=== PATIENT | female | born 1970 | race Caucasian/White ===

== ENCOUNTER 2020-09-04 06:41 | Outpatient (REF) | payer OTHER, SELFPAY | END 2020-09-04 06:42 | disposition home or self-care (01) | LOC: HO.LAB 06:41 | PROVIDERS: Visit Provider Internal Medicine | DX: Z20.828 Contact with and (suspected) exposure to other viral communicable diseases (principal) | CPT/HCPCS: C9803; U0003 ==

== ENCOUNTER 2020-10-13 09:00 | Outpatient (REF) | payer OTHER, SELFPAY ==
[2020-10-14 11:42] LABS: C. trachomatis RNA TMA NOT DETECTED (NOT DETECTED); N. gonorrhoeae RNA TMA NOT DETECTED (NOT DETECTED)
== END 2020-10-13 09:01 | disposition home or self-care (01) ==
LOC: HO.LAB 09:00
PROVIDERS: PCP Internal Medicine; Visit Provider Advanced Practice Midwife
DX: Z01.419 Encounter for gynecological examination (general) (routine) without abnormal findings (principal); R23.2 Flushing; Z20.2 Contact with and (suspected) exposure to infections with a predominantly sexual mode of transmission
CPT/HCPCS: 36415; 87491; 87591

== ENCOUNTER 2020-12-25 10:06 | Outpatient (REF) | payer OTHER, SELFPAY ==
--- NOTE | ~2020-12-25 | MM_ITS ---
EXAMINATION: MM SCREENING DIGITAL BREAST TOMOSYNTHESIS, BILATERAL CLINICAL INFORMATION: Screening. Asymptomatic. The lifetime risk of breast cancer based on the Tyrer-Cuzick Model is 11%. COMPARISON: Mammography: 07/19/2015, 01/05/2015, 01/04/2014 TECHNIQUE: Digital breast tomosynthesis is performed in both the craniocaudal and mediolateral oblique views along with computer-aided detection (CAD). Synthesized 2D images are generated from the tomosynthesis. FINDINGS: There are scattered areas of fibroglandular density (ACR BI-RADS breast composition Category b). There are no significant masses, abnormal calcifications, or other abnormalities. Small nodular asymmetry posterior medial central right breast is stable since 2013. Parenchymal asymmetry mid upper outer left breast noted previously is left conspicuous. No developing density. The axilla and skin contours are unremarkable. MM/MM tomosynthesis screening BI IMPRESSION: No mammographic evidence of malignancy. ASSESSMENT: BI-RADS 2: Benign RECOMMENDATION: Routine annual mammography screening. This patient's information was entered into a reminder system with a target due date for their next mammogram.
== END 2020-12-25 10:07 | disposition home or self-care (01) ==
LOC: HO.MAMMO 10:06
PROVIDERS: Visit Provider Advanced Practice Midwife
DX: Z12.31 Encounter for screening mammogram for malignant neoplasm of breast (principal)
CPT/HCPCS: 77063; 77067

== ENCOUNTER 2021-02-12 08:51 | Outpatient (REF) | payer OTHER, SELFPAY ==
[2021-02-12 09:23] LABS: Basophils Absolute Auto 0.1 X10*3/uL (0.0-0.2); Basophils Percent Auto 1.3 % (0-2); Eosinophils Absolute Auto 0.1 X10*3/uL (0.0-0.4); Eosinophils Percent Auto 2.4 % (0-4); Hematocrit 43.7 % (37-47); Hemoglobin 14.7 g/dl (12.0-16.0); Imm Gran Abs Auto 0.03 X10*3/uL (0.00-0.03); Imm Gran Pct Auto 0.6 % (0.0-0.4); Lymphocytes Absolute Auto 2.3 X10*3/uL (1.2-4.9); Lymphocytes Percent Auto 42.8 % (20-40); MANUAL DIFF FLAG NO; Mean Corpuscular HGB Conc 33.6 g/dl (31.0-35.0); Mean Corpuscular Hemoglobin 28.8 pg (27.0-33.0); Mean Corpuscular Volume 85.7 fL (80-98); Mean Platelet Volume 10.8 fL (9.4-12.3); Monocytes Absolute Auto 0.6 X10*3/uL (0.1-1.2); Monocytes Percent Auto 10.3 % (2-11); Neutrophils Absolute Auto 2.3 X10*3/uL (2.0-8.3); Neutrophils Percent Auto 42.6 % (45-73); Platelet Count 216 X10*3/uL (160-400); Red Cell Distribution Width 12.9 % (11.0-16.0); White Blood Count 5.4 X10*3/uL (4.8-10.8)
[2021-02-12 09:39] LABS: Alanine Aminotransferase 23 U/L (0-31); Albumin Level 4.3 g/dL (3.5-5.0); Alkaline Phosphatase 110 U/L (39-117); Anion Gap 10 (12-20); Aspartate Amino Transferase 25 U/L (5-31); Bilirubin Total 0.7 mg/dL (0.0-1.0); Blood Urea Nitrogen 13 mg/dL (9-16); Calcium 9.6 mg/dL (8.4-10.2); Carbon Dioxide 31 mmol/L (22-29); Chloride 107 mmol/L (96-108); Cholesterol 166 mg/dL; Estimated Glomerular Filt Rate > 60; Glucose Fasting 95 mg/dL (60-99); HDL Cholesterol 46 mg/dL; LDL Cholesterol Calculated 90 mg/dl; Potassium 4.4 mmol/L (3.3-5.1); Sodium 144 mmol/L (135-145); Total Protein 6.9 g/dL (6.5-8.0); Triglycerides 151 mg/dL
== END 2021-02-12 08:52 | disposition home or self-care (01) ==
LOC: HO.LAB 08:51
PROVIDERS: PCP Internal Medicine; Visit Provider Internal Medicine
DX: Z00.00 Encounter for general adult medical examination without abnormal findings (principal)
CPT/HCPCS: 36415; 80053; 80061; 85025

== ENCOUNTER 2021-04-03 08:24 | Outpatient (REF) | payer OTHER, SELFPAY ==
--- NOTE | ~2021-04-03 | US_ITS ---
EXAMINATION: US RETROPERITONEAL COMPLETE (RENAL) CLINICAL INFORMATION: Renal stones. COMPARISON: Ultrasound renal with bladder 01/12/2015. TECHNIQUE: Real-time imaging of the kidneys and bladder. FINDINGS: RIGHT KIDNEY: 12.8 x 4.4 x 6.3 cm (SAG x AP x TRV). The kidney is normal in size, contour, and echogenicity. Renal cortical thickness is normal. No focal parenchymal lesions. There are echogenic stones in the upper midpole. They measure 0.7 x 0.5 x 0.7 and 0.3 x 0.3 x 0.4 cm in upper pole and 0.3 x 0.2 x 0.3 in midpole. There is mild hydronephrosis. LEFT KIDNEY: 11.7 x 5.3 x 4.9 cm (SAG x AP x TRV). The kidney is normal in size, contour, and echogenicity. Renal cortical thickness is normal. No focal parenchymal lesions. There is a small cluster echogenic stone in the upper pole measuring 2.1 x 1.5 x 1.6 cm. Small cluster of echogenic calculi is also seen in the lower pole measuring 1.1 x 0.6 x 0.7 cm. There is mild hydronephrosis. BLADDER: Well distended and normal. Bilateral ureteral jets are demonstrated. Prevoid bladder volume is 388 mL. Postvoid bladder volume is 61 mL. US/US retroperitoneal comp IMPRESSION: Bilateral echogenic clusters of renal calculi with mild hydronephrosis. Small postvoid residual bladder volume. Normal bilateral ureteral jets seen.
== END 2021-04-03 08:25 | disposition home or self-care (01) ==
LOC: HO.HMGCX 08:24
PROVIDERS: PCP Internal Medicine; Visit Provider Internal Medicine
DX: N20.0 Calculus of kidney (principal)
CPT/HCPCS: 76770

== ENCOUNTER → 2021-04-12 08:06 | Outpatient (REF) | payer OTHER, SELFPAY ==
--- NOTE | 2021-04-11 15:11 | ECG_ITS ---
Test Reason : CHEST PAIN Blood Pressure : / mmHG Vent. Rate : 090 BPM Atrial Rate : 090 BPM P-R Int : 210 ms QRS Dur : 088 ms QT Int : 372 ms P-R-T Axes : 057 -31 033 degrees QTc Int : 455 ms Sinus rhythm with 1st degree A-V block Possible Left atrial enlargement Left axis deviation Septal infarct , age undetermined Abnormal ECG No previous ECGs available Referred By: John Ibanez Electronically Signed By:Adebayo Mehta
[2021-04-11 15:40] LABS: MANUAL DIFF FLAG NO
[2021-04-11 15:42] LABS: Basophils Absolute Auto 0.1 X10*3/uL (0.0-0.2); Basophils Percent Auto 0.9 % (0-2); Eosinophils Absolute Auto 0.1 X10*3/uL (0.0-0.4); Eosinophils Percent Auto 1.6 % (0-4); Hematocrit 41.2 % (37-47); Hemoglobin 14.4 g/dl (12.0-16.0); Imm Gran Abs Auto 0.03 X10*3/uL (0.00-0.03); Imm Gran Pct Auto 0.4 % (0.0-0.4); Lymphocytes Absolute Auto 2.3 X10*3/uL (1.2-4.9); Lymphocytes Percent Auto 30.8 % (20-40); Mean Corpuscular Hemoglobin 29.8 pg (27.0-33.0); Mean Corpuscular Volume 85.3 fL (80-98); Mean Platelet Volume 10.2 fL (9.4-12.3); Monocytes Absolute Auto 0.8 X10*3/uL (0.1-1.2); Monocytes Percent Auto 11.4 % (2-11); Neutrophils Absolute Auto 4.1 X10*3/uL (2.0-8.3); Neutrophils Percent Auto 54.9 % (45-73); Platelet Count 240 X10*3/uL (160-400); Red Blood Count 4.83 X10*6/uL (4.20-5.50); White Blood Count 7.4 X10*3/uL (4.8-10.8)
[2021-04-11 16:05] LABS: Anion Gap 13 (12-20); Blood Urea Nitrogen 11 mg/dL (9-16); Calcium 9.8 mg/dL (8.4-10.2); Carbon Dioxide 29 mmol/L (22-29); Chloride 104 mmol/L (96-108); Estimated Glomerular Filt Rate > 60; Glucose Random 114 mg/dL (60-115); Sodium 142 mmol/L (135-145)
[2021-04-11 16:20] LABS: D Dimer 380 NG/ML
[2021-04-11 16:22] LABS: Troponin-I High Sensitivity < 3.5 ng/L (<3.5-17.0)
--- NOTE | 2021-04-12 08:00 | CA_ITS ---
Acquisition Time: 2021-04-12 08:07:53 Total Exercise Time: 00:06:02 Test Indications: Chest Pain Medications: Protocol: TONE Max HR: 164 BPM 97% of Pred: 169 BPM Max BP: 212/104 mmHG Max Work Load: 7.0 METS PT EXERCISED ON STD TONE PROTOCOL FOR 6 MIN THRU STAGE 2. MAX HR 164-97% MAX. 2/10 CHEST TIGHTNESS. INITIAL T-WAVE CHANGESON RESTING EKG RESOLVED WITH EXERCISE. PT TOLERATED EXERCISE WELL. WILL REFER TO CARDIOLOGY FOR FURTHER EVAL.. Referred By: John Roper Overread By: JEFF ROPER MD
== END ==
LOC: HO.CARD 08:06
PROVIDERS: PCP Internal Medicine; Visit Provider Internal Medicine
DX: R07.1 Chest pain on breathing (principal); R06.09 Other forms of dyspnea; Z86.16 Personal history of COVID-19
CPT/HCPCS: 36415; 80048; 84484; 85025; 85379; 86140; 93005; 93017

== ENCOUNTER → 2021-05-07 09:54 | Outpatient (BNVA) | payer OTHER, SELFPAY | PROVIDERS: PCP Internal Medicine; Visit Provider Internal Medicine ==

== ENCOUNTER → 2021-06-07 08:30 | Outpatient (REF) | payer OTHER, SELFPAY ==
--- NOTE | ~2021-06-07 | NM_ITS ---
EXERCISE MYOCARDIAL PERFUSION STUDY INDICATION: Chest pain, assess for coronary disease and ischemia TECHNIQUE: The patient was brought in for an exercise perfusion study on 06/07/2021. Patient performed exercise as per Karri protocol and was injected 30 mCi of sestamibi once target heart rate was achieved. Images were obtained using the SPECT gamma camera interlaced with the gating device. Images were obtained in supine position. Resting perfusion study was performed on 06/08/2021. Patient was administered 30 mCi of sestamibi intravenously at rest. Images were then obtained in supine position. Total DLP 118mGy-cm. Images were processed with the software and compared side to side in short axis, horizontal long axis and vertical long axis views. FINDINGS: Raw images were reviewed. The stress perfusion study showed diminished tracer uptake in the apical anterior wall. There does appear to be slight improvement with CT attenuation correction.. The gated study shows normal LV systolic function with calculated LVEF of 71%. LV cavity is normal in size. The gated study shows normal wall thickening and contraction of segments. Resting study shows mildly reduced tracer uptake in the distal part of anterior wall, with improvement from CT attenuation correction. Gating at rest reveals normal wall motion with ejection fraction at 57%. The findings are consistent with mild reversible apical anterior defect likely from soft tissue attenuation. NM/NM cardiolite stress test IMPRESSION: 1. Myocardial perfusion imaging study shows mild apical reversible defect likely artifactual. Less likely from ischemia. 2. Gated LVEF is 66% during stress and 57% during rest.. 3. Transient ischemic dilatation not present. EKG component of the test reported separately.
--- NOTE | 2021-06-07 08:32 | CA_ITS ---
Transthoracic Echocardiogram Patient (Last, First, Middle): Naina Robles M Gender: Female Date of : 1970 Age: 51 Procedure Date: 06/07/2021 Procedure Type: Transthoracic Echocardiogram Location: OP Height: 165.1 cm Weight: 91.63 kg BSA: 1.99 m2 Heart Rate: bpm BP: 134 / 90 mmHg Blind Eyeletter: LOLIS Referring MD: Toni Bragg MD Symptoms: R07.2 - Precordial pain Study Quality: Good ECG Rhythm: Sinus Conclusions: - The left ventricular systolic function is normal. The calculated ejection fraction is 58% by biplane method. - There is mildly increased left ventricular wall thickness. - No obvious valvular pathology seen on this study. Findings Left Ventricle Normal left ventricular cavity size. There is mildly increased left ventricular wall thickness. The left ventricular systolic function is normal. The calculated ejection fraction is 58% by biplane method. There is no evidence of regional wall motion abnormalities. Diastolic function is normal for age. Right Ventricle Normal right ventricular cavity size and systolic function. Atria Both atria are normal in size. Aortic Valve There is a normal trileaflet aortic valve. There is no aortic valve stenosis. There is no aortic valve regurgitation. Mitral Valve The mitral valve appears normal. There is trace mitral valve regurgitation. There is no mitral valve stenosis. Pulmonic Valve The pulmonic valve was not well visualized. Tricuspid Valve Normal tricuspid valve structure. There is no tricuspid valve regurgitation. Tricuspid regurgitation envelope is inadequate for calculation of right ventricular systolic pressure. Great Vessels The aortic annulus, sinuses of valsalva, and asc aorta are normal in size. Venous The inferior vena cava is normal in size and collapses greater than 50% with inspiration. Pericardium/Pleural There is no evidence of pericardial effusion. Prior Study Comparison No prior study available for comparison. Recommendations, Care & Conclusions No obvious valvular pathology seen on this study. Measurements 2D Linear Measurements IVSd: 1.31 0.6-0.9/0.6-1.0 cm LVIDd: 3.60 3.9-5.3/4.2-5.9 cm LVIDd Index: 1.81 2.4-3.2/2.2-3.1 cm/m2 LVIDs: 2.71 2.0-3.6 cm LVPWd: 1.14 0.7-1.1 cm Ao Root: 3.90 2.1-3.5 cm LA Diam: 3.70 2.7-3.8/3.0-4.0 cm LAIDs Index: 1.86 1.5-2.3 cm/m2 LV Mass: 181.78 67-162/88-224 g LV Mass Index: 91.35 43-95/49-115 g/m2 LVOT Diam: 2.00 3.0+(-)1.3 cm 2D Systolic Function EF 4C: 54.00 >55% EF 2C: 62.30 >55% EF BiP: 57.70 >55% Mitral Valve MV Pk E: 0.47 MV PK A: 0.66 MV Decel Time: 275.00 E/A: 0.70 E'Lateral: 8.05 E'Medial: 5.66 E/E' Med: 8.30 E/E' Lat: 5.80 PHT: 80.00 MVA PHT: 2.75 Decel [place]: 1.70 Aortic Valve AoV Pk Reid: 0.99 AoV Mn Reid: 0.80 AoV VTI: 0.22 AoV Pk Grad: 4.00 Aov Mn Grad: 3.00 DORITA Cont.VTI: 2.87 LVOT LVOT Pk Reid: 1.10 LVOT Mn Reid: 0.77 LVOT VTI: 0.20 LVOT Pk Grad: 5.00 LVOT Mn Grad: 3.00 LVOT Diam: 2.00 LVOT Area: 3.14 Diastolic Function MV Pk E: 0.47 MV Pk A: 0.66 E/A: 0.70 E'Medial: 5.66 E/E' Med: 8.30 E' Laterial: 8.05 E/E' Lat: 5.80 Right Ventricle TAPSE (mm): 2.16 TVS' Reid: 10.90 Tricuspid Valve RA Press: 3.00 Great Vessels Aorta Ao Root-2D: 3.90 2.0-3.7 cm Ao Asc: 3.20 2.1-3.4 cm Ao Arch: 2.40 Updated in Other Vendor System with Status of Final Toni Bragg MD electronically signed on 06/08/2021 11:06:26 AM with status of Final
--- NOTE | 2021-06-07 08:32 | CA_ITS ---
Acquisition Time: 2021-06-07 09:17:30 Total Exercise Time: 00:06:00 Test Indications: Abnormal Treadmill Test Medications: ASA Protocol: TONE Max HR: 169 BPM 100% of Pred: 169 BPM Max BP: 186/092 mmHG Max Work Load: 7.0 METS Exercise stress test with exercise 6 min of Tone protocol, with moderate shortness of breath and 5/10 mid chest throbbing discomfort, with rare isolated PVC, with normotensive response to exercise, with T wave inversion inferiorly and V4-V6 at baseline and in later recovery, without EKG changes meeting criteria for ischemia during exercise. ( note signal average EKG tracings appear ischemia however raw date EKGs show upsloping ST segments). Nuclear images pending. Test reveiwed with Dr Bragg. Referred By: Toni Bragg Overread By: CHRIS KING
== END ==
LOC: HO.CARD 08:30
PROVIDERS: PCP Internal Medicine; Visit Provider Internal Medicine
DX: R07.2 Precordial pain (principal); R06.02 Shortness of breath
CPT/HCPCS: 78452; 93017; 93306; A9500

== ENCOUNTER → 2021-06-14 08:18 | Outpatient (BNVA) | payer OTHER, SELFPAY | PROVIDERS: PCP Internal Medicine; Referring Provider Internal Medicine; Visit Provider Internal Medicine ==

== ENCOUNTER 2021-08-27 11:43 | Outpatient (REF) | payer OTHER, SELFPAY ==
[2021-08-27 14:01] LABS: Influenza A PCR NEGATIVE (Negative); Influenza B PCR NEGATIVE (Negative); Resp Syncy Virus RNA Qual PCR NEGATIVE (Negative); SARS COV2 PCR INHOUSE NEGATIVE (Negative)
== END 2021-08-27 11:44 | disposition home or self-care (01) ==
LOC: HO.LNP 11:43
PROVIDERS: PCP Internal Medicine; Visit Provider Internal Medicine
DX: J02.9 Acute pharyngitis, unspecified (principal); Z20.822 Contact with and (suspected) exposure to COVID-19
CPT/HCPCS: 0241U

== ENCOUNTER 2021-10-09 15:17 | Outpatient (REF) | payer OTHER, SELFPAY ==
[2021-10-09 15:37] LABS: COVID-19 Test Negative (Negative); IDNOW Serial# 9DD0AD1C
== END 2021-10-09 15:18 | disposition home or self-care (01) ==
LOC: HO.LNP 15:17
PROVIDERS: Visit Provider Internal Medicine
DX: Z20.822 Contact with and (suspected) exposure to COVID-19 (principal); R51.9 Headache, unspecified; R50.9 Fever, unspecified; J02.9 Acute pharyngitis, unspecified
CPT/HCPCS: 87635

== ENCOUNTER 2021-10-17 08:46 | Outpatient (REF) | payer OTHER, SELFPAY ==
[2021-10-17 11:09] LABS: Hematocrit 43.3 % (37.0-47.0); Hemoglobin 14.8 g/dl (12.0-16.0); Mean Corpuscular HGB Conc 34.2 g/dl (31.0-35.0); Mean Corpuscular Volume 84.9 fL (80.0-98.0); Platelet Count 226 X10*3/uL (160-400); Red Cell Distribution Width 12.8 % (11.0-16.0); White Blood Count 6.2 X10*3/uL (4.8-10.8)
[2021-10-17 12:29] LABS: Creatinine Urine 109.08 mg/dL; Microalbum/Creatinine Ratio Ur 118.2 ug/mg cr
[2021-10-17 13:42] LABS: Anion Gap 12 (12-20); Carbon Dioxide 31 mmol/L (22-29); Chloride 105 mmol/L (96-108); Estimated Glomerular Filt Rate > 60; Glucose Random 98 mg/dL (60-115); Potassium 4.7 mmol/L (3.3-5.1); Sodium 143 mmol/L (135-145)
[2021-10-17 15:05] LABS: Blood Urea Nitrogen 15 mg/dL (9-16); Calcium 9.8 mg/dL (8.4-10.2)
[2021-10-17 15:28] LABS: Estimated Average Glucose 108 mg/dL; Hemoglobin A1c % 5.4 %
[2021-10-17 16:27] LABS: CT PCR NOT DETECTED (Not Detect.); NG PCR NOT DETECTED (Not Detect.)
== END 2021-10-17 08:47 | disposition home or self-care (01) ==
LOC: HO.LAB 08:46
PROVIDERS: Absent Provider Internal Medicine; PCP Internal Medicine; Visit Provider Advanced Practice Midwife
DX: Z01.419 Encounter for gynecological examination (general) (routine) without abnormal findings (principal); Z20.2 Contact with and (suspected) exposure to infections with a predominantly sexual mode of transmission
CPT/HCPCS: 36415; 80048; 82043; 83036; 85027; 87491; 87591

== ENCOUNTER 2021-12-14 10:27 | Outpatient (REF) | payer OTHER, SELFPAY ==
[2021-12-14 10:59] LABS: COVID-19 Test Negative (Negative)
== END 2021-12-14 10:28 | disposition home or self-care (01) ==
LOC: HO.LNP 10:27
PROVIDERS: Visit Provider Internal Medicine
DX: Z20.822 Contact with and (suspected) exposure to COVID-19 (principal)
CPT/HCPCS: 87635; C9803

== ENCOUNTER 2022-01-05 07:50 | Outpatient (REF) | payer OTHER, SELFPAY ==
--- NOTE | ~2022-01-05 | MM_ITS ---
EXAMINATION: MM SCREENING DIGITAL BREAST TOMOSYNTHESIS, BILATERAL CLINICAL INFORMATION: Screening. Asymptomatic. The lifetime risk of breast cancer based on the Tyrer-Cuzick Model is 10%. COMPARISON: Mammography: 12/25/2020, 07/19/2015, 01/05/2015, 01/04/2014 TECHNIQUE: Digital breast tomosynthesis is performed in both the craniocaudal and mediolateral oblique views along with computer-aided detection (CAD). Synthesized 2D images are generated from the tomosynthesis. FINDINGS: There are scattered areas of fibroglandular density (ACR BI-RADS breast composition Category b). There are no significant masses, abnormal calcifications, or other abnormalities. There is no developing density or architectural abnormality. Small circumscribed nodule posterior central right breast is stable from prior studies. Parenchymal asymmetry left breast upper outer quadrant noted on remote mammograms has regressed over time. The axilla and skin contours are unremarkable. MM/MM tomosynthesis screening BI IMPRESSION: No mammographic evidence of malignancy. ASSESSMENT: BI-RADS 2: Benign RECOMMENDATION: Routine annual mammography screening. This patient's information was entered into a reminder system with a target due date for their next mammogram.
== END 2022-01-05 07:51 | disposition home or self-care (01) ==
LOC: HO.MAMMO 07:50
PROVIDERS: Visit Provider Advanced Practice Midwife
DX: Z12.31 Encounter for screening mammogram for malignant neoplasm of breast (principal)
CPT/HCPCS: 77063; 77067

== ENCOUNTER 2022-10-22 07:59 | Outpatient (REF) | payer OTHER, SELFPAY ==
[2022-10-22 16:59] LABS: CT PCR NOT DETECTED (Not Detect.); NG PCR NOT DETECTED (Not Detect.)
[2022-10-23 09:07] LABS: BV Int Neg Control Negative (Negative); BV Int Pos Control Positive (Positive)
== END 2022-10-22 08:00 | disposition home or self-care (01) ==
LOC: HO.LAB 07:59
PROVIDERS: PCP Internal Medicine; Visit Provider Advanced Practice Midwife
DX: Z01.419 Encounter for gynecological examination (general) (routine) without abnormal findings (principal); Z11.3 Encounter for screening for infections with a predominantly sexual mode of transmission; N93.9 Abnormal uterine and vaginal bleeding, unspecified; F43.21 Adjustment disorder with depressed mood; R23.2 Flushing; N95.0 Postmenopausal bleeding
CPT/HCPCS: 0353U; 87480; 87510; 87660

== ENCOUNTER 2022-10-22 08:37 | Outpatient (REF) | payer OTHER, SELFPAY | END 2022-10-22 08:38 | disposition home or self-care (01) | LOC: HO.LNP 08:37 | PROVIDERS: Visit Provider Advanced Practice Midwife | DX: Z13.89 Encounter for screening for other disorder (principal) ==

== ENCOUNTER 2022-11-06 15:49 | Outpatient (REF) | payer OTHER, SELFPAY ==
--- NOTE | ~2022-11-06 | US_ITS ---
EXAMINATION: US PELVIS CLINICAL INFORMATION: Postmenopausal bleeding. COMPARISON: Pelvic ultrasound dated 12/21/2013. TECHNIQUE: Ultrasound of the pelvis is performed using both transabdominal and transvaginal transducers along with Doppler. Transvaginal imaging is performed due to inadequate visualization transabdominally. FINDINGS: Uterus: The uterus is anteverted and anteflexed. The uterus measures 7.4 x 2.8 x 3.0 cm. Nabothian cysts are seen within the cervix. A 3 mm cervical calcification is seen, possibly related to a minimal fibroid or The double wall endometrial thickness is 0.2 mm. The uterus is smooth in contour and has normal myometrial echogenicity. No visible fibroid. Adnexa: Both ovaries are visualized. There is normal color flow to the adnexa. There is no ovarian torsion. There is no pelvic ascites or fluid collection. Right ovary measures 1.9 x 1.5 x 1.3 cm, volume 1.9 mL. Left ovary measures 2.1 x 1.0 x 1.2 cm, volume 1.3 mL. US/US pelvic and transvaginal IMPRESSION: 1. Nabothian cysts are seen within the cervix. 2. A small endocervical calcifications is seen, likely sequela of prior infection or inflammation or related to a calcified fibroid. Recommend management on a clinical basis, including correlation with the patient's most recent Pap smear.
== END 2022-11-06 15:50 | disposition home or self-care (01) ==
LOC: HO.US 15:49
PROVIDERS: PCP Internal Medicine; Visit Provider Advanced Practice Midwife
DX: N95.0 Postmenopausal bleeding (principal)
CPT/HCPCS: 76830; 76856

== ENCOUNTER 2022-11-13 08:46 | Outpatient (REF) | payer OTHER, SELFPAY ==
[2022-11-13 09:11] LABS: MANUAL DIFF FLAG NO
[2022-11-13 09:23] LABS: Basophils Absolute Auto 0.1 X10*3/uL (0.0-0.2); Basophils Percent Auto 1.4 % (0-2); Eosinophils Absolute Auto 0.1 X10*3/uL (0.0-0.4); Eosinophils Percent Auto 2.1 % (0-4); Hematocrit 44.8 % (37.0-47.0); Hemoglobin 15.4 g/dl (12.0-16.0); Imm Gran Abs Auto 0.03 X10*3/uL (0.00-0.03); Imm Gran Pct Auto 0.5 % (0.0-0.4); Lymphocytes Absolute Auto 2.3 X10*3/uL (1.2-4.9); Lymphocytes Percent Auto 39.5 % (20-40); Mean Corpuscular HGB Conc 34.4 g/dl (31.0-35.0); Mean Corpuscular Hemoglobin 29.4 pg (27.0-33.0); Mean Corpuscular Volume 85.5 fL (80.0-98.0); Mean Platelet Volume 10.7 fL (9.4-12.3); Monocytes Absolute Auto 0.5 X10*3/uL (0.1-1.2); Monocytes Percent Auto 9.1 % (2-11); Neutrophils Absolute Auto 2.8 x10*3/uL (2.0-8.3); Neutrophils Percent Auto 47.4 % (45-73); Platelet Count 223 X10*3/uL (160-400); Red Blood Count 5.24 X10*6/uL (4.20-5.50); Red Cell Distribution Width 12.9 % (11.0-16.0); White Blood Count 5.9 X10*3/uL (4.8-10.8)
[2022-11-13 10:13] LABS: Alanine Aminotransferase 13 U/L (0-31); Albumin Level 4.4 g/dL (3.5-5.0); Alkaline Phosphatase 85 U/L (39-117); Anion Gap 14 (12-20); Aspartate Amino Transferase 20 U/L (5-31); Bilirubin Total 0.7 mg/dL (0.0-1.0); Blood Urea Nitrogen 13 mg/dL (9-16); Calcium 9.6 mg/dL (8.4-10.2); Carbon Dioxide 28 mmol/L (22-29); Chloride 105 mmol/L (96-108); Cholesterol 190 mg/dL; Estimated Glomerular Filt Rate > 60; Glucose Fasting 91 mg/dL (60-99); HDL Cholesterol 55 mg/dL; LDL Cholesterol Calculated 118 mg/dl; Sodium 143 mmol/L (135-145); Total Protein 6.8 g/dL (6.5-8.0); Triglycerides 85 mg/dL
[2022-11-13 10:24] LABS: Free T4 (Free Thyroxine) 1.12 ng/dL (0.71-1.85); Thyroid Stimulating Hormone 1.76 uIU/mL (0.32-4.0)
[2022-11-13 12:28] LABS: TSH reflex Free T4 1.84 uIU/mL (0.32-4.0)
[2022-11-15 03:54] LABS: Follicle Stimulating Hormone 29.6 mIU/mL
== END 2022-11-13 08:47 | disposition home or self-care (01) ==
LOC: HO.LAB 08:46
PROVIDERS: Absent Provider Advanced Practice Midwife; PCP Internal Medicine; Visit Provider Internal Medicine
DX: Z00.00 Encounter for general adult medical examination without abnormal findings (principal); R23.2 Flushing; N95.0 Postmenopausal bleeding
CPT/HCPCS: 36415; 80053; 80061; 83001; 84439; 84443; 85025

== ENCOUNTER 2022-11-20 08:56 | Outpatient (REF) | payer OTHER, SELFPAY ==
[2022-11-22 02:04] LABS: HPV mRNA E6/E7 rflx Not Detected (Not Detected)
== END 2022-11-20 08:57 | disposition home or self-care (01) ==
LOC: HO.LNP 08:56
PROVIDERS: PCP Internal Medicine; Visit Provider Advanced Practice Midwife
DX: Z01.419 Encounter for gynecological examination (general) (routine) without abnormal findings (principal); Z11.51 Encounter for screening for human papillomavirus (HPV); N95.0 Postmenopausal bleeding
CPT/HCPCS: 87624; 88142

== ENCOUNTER 2023-02-01 07:49 | Outpatient (REF) | payer OTHER, SELFPAY ==
--- NOTE | ~2023-02-01 | MM_ITS ---
EXAMINATION: MM SCREENING DIGITAL BREAST TOMOSYNTHESIS, BILATERAL CLINICAL INFORMATION: Screening. Asymptomatic. The lifetime risk of breast cancer based on the Tyrer-Cuzick Model is 8%. COMPARISON: Mammography: 01/05/2022, 12/25/2020, 07/19/2015, 01/05/2015, left breast ultrasound 01/05/2015. TECHNIQUE: Digital breast tomosynthesis is performed in both the craniocaudal and mediolateral oblique views along with computer-aided detection (CAD). Synthesized 2D images are generated from the tomosynthesis. FINDINGS: There are scattered areas of fibroglandular density (ACR BI-RADS breast composition Category b). There are no significant masses, abnormal calcifications, or other abnormalities. Parenchymal pattern is similar to prior studies. There is no developing density or architectural abnormality. There is a small benign circumscribed nodule again seen posterior central 3:00 right breast. The axilla and skin contours are unremarkable. No significant changes. MM/MM tomosynthesis screening BI IMPRESSION: No mammographic evidence of malignancy. ASSESSMENT: BI-RADS 2: Benign RECOMMENDATION: Routine annual mammography screening. This patient's information was entered into a reminder system with a target due date for their next mammogram.
== END 2023-02-01 07:50 | disposition home or self-care (01) ==
LOC: HO.MAMMO 07:49
PROVIDERS: PCP Internal Medicine; Visit Provider Advanced Practice Midwife
DX: Z12.31 Encounter for screening mammogram for malignant neoplasm of breast (principal)
CPT/HCPCS: 77063; 77067

== ENCOUNTER 2023-02-10 10:48 | Outpatient (REF) | payer OTHER, SELFPAY ==
--- NOTE | ~2023-02-10 | US_ITS ---
EXAMINATION: US PELVIS CLINICAL INFORMATION: 3 month followup of calcification in the cervix. COMPARISON: None available. TECHNIQUE: Ultrasound of the pelvis is performed using both transabdominal and transvaginal transducers along with Doppler. Transvaginal imaging is performed due to inadequate visualization transabdominally. FINDINGS: Uterus: The uterus is anteverted and measures 6.0 x 2.9 x 3.0 cm. The double wall endometrial thickness is 0.2 mm. The uterus is smooth in contour and has normal myometrial echogenicity. No visible fibroid. A central calcification is seen in the cervix which was also present on the prior study. Nabothian cysts seen previously not detected on the current study. Adnexa: Both ovaries are visualized. There is normal color flow to the adnexa. There is no ovarian torsion. There is no pelvic ascites or fluid collection. Right ovary measures 1.7 x 1.2 x 0.9 cm for a volume of 1 mL. Left ovary measures 2.1 x 1.1 x 1.7 cm for a volume of 2.1 mL. US/US pelvic and transvaginal IMPRESSION: No significant abnormality is seen. An area of calcification is noted in the cervix which is unchanged from prior.
== END 2023-02-10 10:49 | disposition home or self-care (01) ==
LOC: HO.US 10:48
PROVIDERS: PCP Internal Medicine; Visit Provider Advanced Practice Midwife
DX: N88.9 Noninflammatory disorder of cervix uteri, unspecified (principal)
CPT/HCPCS: 76830; 76856

== ENCOUNTER → 2023-02-26 09:08 | Outpatient (BNVA) | payer OTHER, SELFPAY | PROVIDERS: PCP Internal Medicine; Visit Provider Advanced Practice Midwife ==

== ENCOUNTER 2023-10-29 08:00 | Outpatient (AMB) | payer OTHER, SELFPAY ==
--- NOTE | 2023-10-29 08:01 | A.OFFVIS_ITS ---
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 She is doing well with no concerns. Attempting to eat a healthy diet with calcium and vitamin D and stays active with exercise. Currently sexually active. Denies any vaginal dryness or irritation. STI testing offered; she declines. Last pap smear; 2022. Last mammogram; 2022. Colonoscopy deferred, did Cologard. Denies any family history of breast, ovarian or colon cancer. [facility] Medical History Grief at loss of child Basal cell carcinoma (BCC) Surgical History History of appendectomy History of endometrial ablation Hx of tonsillectomy Family History Father No problems noted. Mother No problems noted. Son No problems noted. Social History Alcohol intake: former Patient Tobacco Use Status: Former Tobacco user Quit Date: September 2017 Female Reproductive History Menstrual Menopause type: natural Total pregnancies: 5 Full term: 4 Number of Living Children: 3 Date of last pap smear: 11/20/22 (neg pap and hpv) Date of Mammogram: 02/01/23 (Birad 2) Review of Systems Const All systems reviewed & are unremarkable except as noted in HPI and below Reports as per HPI Eyes Reports no additional complaints ENT Reports no additional complaints Card Reports no additional complaints Resp Reports no additional complaints GI Reports as per HPI and Reports no additional complaints Reports as per HPI Musc Reports no additional complaints Skin/Breast Reports as per HPI Neuro Reports no additional complaints Psych Reports no additional complaints Endo Reports no additional complaints Abad/Lymph Reports no additional complaints Aller/Immun Reports no additional complaints Physical Exam Vital Signs: Last Vital Signs BP 120/80 10/29/23 08:02 BMI result Body Mass Index 30.8 Const General: cooperative, healthy appearing, no acute distress, well developed and alert Orientation/consciousness: patient oriented x3 HEENT Head: Yes normal to inspection Eyes General: appearance normal, both eyes and all related structures Neck Neck: Yes normal visual inspection Thyroid: Thyroid normal Chest Chest palpation & inspection: normal inspection of the chest and other (no puckering, dimpling, peau de orange, retraction, discharge, masses) Breast/axilla inspection: normal inspection of the breasts Breast/axilla palpation: normal palpation of the breasts Resp Effort & Inspection: normal respiratory effort GI Inspection: Yes normal to inspection Palpation (GI): Soft to palpation Rectal Exam - Female: deferred General: Yes bladder normal to palpation External Female Exam: normal external appearance and normal appearance of the urethra Speculum Exam - Vagina: normal appearance of the vagina, normal palpation and normal vaginal discharge Speculum Exam - Cervix: normal appearance of the cervix and normal palpation Bimanual exam- vagina & uterus: normal bimanual exam, normal palpation, uterine size normal, bladder normal to palpation, normal palpation and non-tender Bimanual Exam- Adnexa, other: no masses Skin General skin exam: no rashes or lesions noted Rashes: no rashes Neuro General: patient oriented x3 Cognition (Neuro): normal cognition Extrem General: Yes normal to inspection Psych Attitude: cooperative Thought process: Normal thought process present Assessment & Plan Assessment & Plan (1) Encounter for well woman exam with routine gynecological exam: Code(s): Z01.419 - Encounter for gynecological examination (general) (routine) without abnormal findings Plan Discussed: Current recommendations for pap smears per ASCCP guidelines. Breast awareness, periodic self breast exams and yearly mammogram. Maintain a healthy lifestyle, well balanced diet including Calcium 1,200 mg and Vitamin D 600 IU daily, and routine exercise. Use of condoms for STI if indicated. Contact the office with any postmenopausal bleeding. Patient verbalizes understanding and agrees to the plan of care. She was given opportunity to ask questions and all questions were answered to the best of my ability. RTO in 1 year for annual computer consultant exam. This note is constructed using voice recognition software. 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 Orders: Orders MM tomosynthesis screening BI Today Z12.31 - Encounter for screening mammogram for malignant neoplasm of breast Coding Level of Care Code Est Pt Prev Care 40-64y([id number]) Diagnoses Encounter for well woman exam with routine gynecological exam Z01.419
[2023-10-29 08:02] VITALS: BP 120/80; BMI 30.8
== END 2023-10-29 08:52 | disposition home or self-care (01) ==
LOC: HO.HWS 08:00
PROVIDERS: PCP Internal Medicine; Visit Provider Advanced Practice Midwife
DX: Z01.419 Encounter for gynecological examination (general) (routine) without abnormal findings (principal)
CPT/HCPCS: 99396

== ENCOUNTER → 2023-10-29 08:00 | Outpatient (BNVA) | payer OTHER, SELFPAY | PROVIDERS: PCP Internal Medicine; Visit Provider Advanced Practice Midwife ==

== ENCOUNTER 2023-11-24 14:04 | Emergency (ER) | payer OTHER, SELFPAY ==
--- NOTE | 2023-11-24 | ECG_ITS ---
Test Reason : ABNORMAL EKG Blood Pressure : / mmHG Vent. Rate : 081 BPM Atrial Rate : 081 BPM P-R Int : 210 ms QRS Dur : 128 ms QT Int : 406 ms P-R-T Axes : 052 -20 -24 degrees QTc Int : 471 ms Sinus rhythm with sinus arrhythmia with 1st degree A-V block Possible Left atrial enlargement Right bundle branch block Septal infarct (cited on or before 11-APR-2021) T wave abnormality, consider inferior ischemia Abnormal ECG When compared with ECG of 11-APR-2021 15:15, Right bundle branch block is now Present Referred By: Generic ED Physician Electronically Signed By:ELIZABETH MARTINEZ
[2023-11-24 14:41] LABS: MANUAL DIFF FLAG NO
[2023-11-24 14:42] LABS: Basophils Absolute Auto 0.1 X10*3/uL (0.0-0.2); Basophils Percent Auto 1.6 % (0-2); Eosinophils Absolute Auto 0.1 X10*3/uL (0.0-0.4); Eosinophils Percent Auto 1.4 % (0-4); Hematocrit 41.6 % (37.0-47.0); Hemoglobin 14.7 g/dl (12.0-16.0); Imm Gran Abs Auto 0.04 X10*3/uL (0.00-0.03); Imm Gran Pct Auto 0.7 % (0.0-0.4); Lymphocytes Absolute Auto 2.1 X10*3/uL (1.2-4.9); Mean Corpuscular HGB Conc 35.3 g/dl (31.0-35.0); Mean Corpuscular Hemoglobin 30.4 pg (27.0-33.0); Mean Corpuscular Volume 86.1 fL (80.0-98.0); Mean Platelet Volume 10.5 fL (9.4-12.3); Monocytes Absolute Auto 0.5 X10*3/uL (0.1-1.2); Monocytes Percent Auto 9.3 % (2-11); Neutrophils Absolute Auto 2.9 x10*3/uL (2.0-8.3); Platelet Count 194 X10*3/uL (160-400); Red Blood Count 4.83 X10*6/uL (4.20-5.50); Red Cell Distribution Width 13.2 % (11.0-16.0); White Blood Count 5.7 X10*3/uL (4.8-10.8)
[2023-11-24 15:00] LABS: Alanine Aminotransferase 15 U/L (0-31); Albumin Level 4.3 g/dL (3.5-5.0); Alkaline Phosphatase 85 U/L (39-117); Anion Gap 12 (12-20); Aspartate Amino Transferase 21 U/L (5-31); Bilirubin Total 0.3 mg/dL (0.0-1.0); Blood Urea Nitrogen 14 mg/dL (9-16); Calcium 10.1 mg/dL (8.4-10.2); Carbon Dioxide 31 mmol/L (22-29); Chloride 104 mmol/L (96-108); Estimated Glomerular Filt Rate > 60; Glucose Random 97 mg/dL (60-115); Potassium 4.1 mmol/L (3.3-5.1); Sodium 143 mmol/L (135-145); Total Protein 7.5 g/dL (6.5-8.0)
[2023-11-24 15:13] LABS: Troponin-I High Sensitivity < 2.7 ng/L (<3.5-17.0)
[2023-11-24 15:29] VITALS: BP 153/103; PULSE 68; RESP 16; TEMP 36; O2SAT 96; BMI 33.1
--- NOTE | 2023-11-24 15:33 | ED.GENADULT ---
HPI - General Adult General Chief complaint: Recheck/Abnormal Lab/Rx Stated complaint: abd ekg Source: patient Mode of arrival: ambulatory Limitations: no limitations History of Present Illness HPI narrative: Patient is a 53 year old assigned female at with no reported medical history presenting to the emergency department today with intermittent chest pain. Patient states that she has occasional chest pain and was following up with her doctor who performed an EKG and noticed changes. Patient denies any current dizziness, lightheadedness, abdominal pain, nausea, vomiting, fever, chills, blurry vision, double vision, loss of vision, chest pain, difficulty breathing, shortness of breath, back pain, night sweats, pain with urination, increased urinary frequency, increased urinary urgency, blood in her urine or stool, syncope or a near syncopal episode, recent trauma or falls, bowel incontinence, bladder incontinence, bowel retention, bladder retention, or any other complaints at this time. Relieving factors: none Exacerbating factors: none Associated symptoms: chest pain (none presently) Treatments prior to arrival: none Related Data Home Medications Medication Instructions Recorded Confirmed No Known Home Meds 02/26/23 02/26/23 Allergies Allergy/AdvReac Type Severity Reaction Status Date / Time No Known Allergies Allergy Verified 11/24/23 15:29 [No Known Allergies*] Review of Systems Constitutional: Constitutional: Reports no additional constitutional complaints, Denies chills, Denies fever(s) and Denies night sweats Eyes: Eyes: Reports no additional eye complaints, Denies blurry vision, Denies change in vision, Denies diplopia, Denies eye discharge, Denies loss of vision and Denies eye pain ENT: Denies dizziness Cardiovascular: Cardiovascular: Reports no additional cardiovascular complaints, Reports chest pain (occasional), Denies lightheadedness, Denies Loss of Consciousness and Denies dyspnea Respiratory: Respiratory: Reports no additional respiratory complaints and Denies dyspnea Gastrointestinal: Gastrointestinal: Reports no additional gastrointestinal complaints, Denies abdominal pain, Denies melena, Denies hematochezia, Denies change in bowel habits and Denies change in stool character Genitourinary: Genitourinary: Denies hematuria, Denies urinary frequency, Denies dysuria, Denies urinary incontinence, Denies urinary hesitancy and Denies urinary urgency Musculoskeletal: Musculoskeletal: Reports no additional musculoskeletal complaints, Denies numbness and Denies tingling Neurologic: Denies dizziness, Denies loss of vision, Denies numbness and Denies tingling Psychiatric: Psychiatric: Reports no additional psychiatric complaints Endocrine: Endocrine: Reports no additional endocrine complaints Hematologic/Lymphatic: Hematologic/Lymphatic: Reports no additional hematologic/lymphatic complaints Allergic/Immunologic: Allergic/Immunologic: Reports no additional allergic/immunologic complaints [facility] Past Medical History Attestation statement: The following information was validated with the patient. Source: old records reviewed and nursing notes reviewed Medical History Grief at loss of child Basal cell carcinoma (BCC) Surgical History History of appendectomy History of endometrial ablation Hx of tonsillectomy Family History Family History Father No problems noted. Mother No problems noted. Son No problems noted. Social History Social History Alcohol intake: former Patient Tobacco Use Status: Former Tobacco user Quit Date: September 2017 Advance Directives: No Advance Directives Information Provided: No Physical Exam ED Vital Signs: Vital Signs - 24 hr 11/24/23 15:29 Temperature 96.8 F Pulse Rate 68 Respiratory Rate 16 Blood Pressure 153/103 H Pulse Oximetry 96 Oxygen Delivery Method Room Air BMI result Body Mass Index 33.1 Const General: cooperative, no acute distress, alert and awake Nutritional Appearance: well nourished Orientation/consciousness: patient oriented x3 Limitations: no limitations [facility] Head: Yes normal to inspection and Yes atraumatic Ears: hearing grossly normal bilaterally and external ears normal General nose exam: Normal external nose present, no nasal discharge noted and no epistaxis Face and sinus: Yes normal facial exam, No abrasion and No laceration Mouth: Normal oral and palatal mucosa present, no drooling and no muffled voice Eyes General: appearance normal, both eyes and all related structures Periorbital: periorbital findings normal Eyelids: Yes eyelids normal Conjunctivae: conjunctivae normal Pupils: Equal, round and reactive pupils present EOM: EOMs intact bilaterally Neck Neck: Yes normal visual inspection, Yes full ROM and Yes no lymphadenopathy Chest Chest palpation & inspection: normal inspection of the chest Resp Effort & Inspection: normal respiratory effort and able to speak in complete sentences GI Inspection: Yes normal to inspection Neuro General: patient oriented x3 and moves all extremities Cranial nerves: Yes Equal, round and reactive pupils present Cognition (Neuro): normal cognition Motor exam (neuro): 5/5 motor strength present throughout Sensory Exam: Normal double simultaneous stimulation for sensation Coordination: [id number] test normal Extrem General: Yes normal to inspection, Yes full ROM and Yes capillary refill normal Psych Appearance: grossly normal Mental Status: mental status grossly normal Affect: normal affect Attitude: cooperative Thought process: Normal thought process present Thought content: Normal thought content present Insight: Good insight present (Psych) Course Course Course Narrative: RME performed by Heena Mason PA-C. Patient is a 53 year old assigned female at presenting to the emergency department with intermittent chest pain and EKG changes. Detailed physical exam and review of systems are deferred to the hot roll laminator. Labs, imaging, and swabs ordered. Patient placed back in the waiting room pending room availability and results. Medical Decision Making Medical Decision Making [facility] Narrative: Patient is a 53 year old assigned female at with no reported medical history presenting to the emergency department today with occasional chest pain and a possible EKG change. Patient's limited physical exam performed in triage was unremarkable. Patient's blood work was unremarkable. However, patient left before a repeat troponin could be done. Patient's EKG showed a RBBB which is new from 2020. Patient left the department without completing treatment. Patient left the department before myself or any of the other emergency department clinicians could explain to or review with the patient; physical exam findings, test results, need or lack there of for additional testing, need or lack there of to perform a procedure, need or lack there of for hospital admission / transfer, need or lack there of for prescription medication, treatment options, or a treatment plan. Differential Diagnosis Differential Diagnoses: The differential diagnosis associated with the presentation includes STEMI NSTEMI Chest pain Admission/Observation Consideration of admission/observation: Escalation of care including admission/observation considered Patient would have been admitted to the hospital had her work up had any findings where hospital admission was appropriate, her clinical presentation warranted hospital admission, had myself or any other emergency painting department supervisor had the ability to discuss need or lack there of for hospital admission, and the patient hadn't left the department without completing treatment. Lab Data [facility] Lab Attestation statement: I reviewed the patient's lab results. My interpretation of these results are in the MDM Rationale portion of this note. 11/24/23 14:35 11/24/23 14:35 Labs: Lab Results 11/24/23 Range/Units 14:35 WBC 5.7 (4.8-10.8) X10*3/uL RBC 4.83 (4.20-5.50) X10*6/uL Hgb 14.7 (12.0-16.0) g/dl Hct 41.6 (37.0-47.0) % MCV 86.1 (80.0-98.0) fL MCH 30.4 (27.0-33.0) pg MCHC 35.3 H (31.0-35.0) g/dl RDW 13.2 (11.0-16.0) % Plt Count 194 (160-400) X10*3/uL MPV 10.5 (9.4-12.3) fL Immature Gran % (Auto) 0.7 H (0.0-0.4) % Neut % (Auto) 50.0 (45-73) % Lymph % (Auto) 37.0 (20-40) % Nance % (Auto) 9.3 (2-11) % Eos % (Auto) 1.4 (0-4) % Baso % (Auto) 1.6 (0-2) % Lymph # (Auto) 2.1 (1.2-4.9) X10*3/uL Nance # (Auto) 0.5 (0.1-1.2) X10*3/uL Eos # (Auto) 0.1 (0.0-0.4) X10*3/uL Baso # (Auto) 0.1 (0.0-0.2) X10*3/uL Abs Immat Gran (auto) 0.04 H (0.00-0.03) X10*3/uL Absolute Neuts (auto) 2.9 (2.0-8.3) x10*3/uL Absolute Nucleated RBC 0.000 (0.0-0.012) X10*3/uL Nucleated RBC % (auto) 0.0 (0.0-0.2) /100WBC Sodium 143 (135-145) mmol/L Potassium 4.1 (3.3-5.1) mmol/L Chloride 104 (96-108) mmol/L Carbon Dioxide 31 H (22-29) mmol/L Anion Gap 12 (12-20) BUN 14 (9-16) mg/dL Creatinine 0.78 (0.5-1.4) mg/dL Estim Creat Clear Calc TNP Estimated GFR > 60 Random Glucose 97 (60-115) mg/dL Calcium 10.1 (8.4-10.2) mg/dL Total Bilirubin 0.3 (0.0-1.0) mg/dL AST 21 (5-31) U/L ALT 15 (0-31) U/L Alkaline Phosphatase 85 (39-117) U/L Troponin I High Sens < 2.7 (<3.5-17.0) ng/L Total Protein 7.5 (6.5-8.0) g/dL Albumin 4.3 (3.5-5.0) g/dL Independent Interpretation I performed an independent interpretation of an: EKG Interpretation: Vent. Rate: 081 BPM Atrial Rate: 081 BPM P-R Int: 210 ms QRS Dur: 128 ms QT Int: 406 ms P-R-T Axes: 052 -20 -24 degrees QTc Int: 471 ms Sinus rhythm with sinus arrhythmia with 1st degree A-V block Possible Left atrial enlargement Right bundle branch block Septal infarct (cited on or before 11-APR-2021) T wave abnormality, consider inferior ischemia Abnormal ECG When compared with ECG of 11-APR-2021 15:15, Right bundle branch block is now Present Electronically Signed By:ELIZABETH BRAGG Dictated By: Elizabeth Bragg MD Signed By: Electronically signed by Elizabeth Bragg MD 11/24/23 1248 Discharge Plan Discharge Clinical Impression: Chest pain Patient Disposition: Left W/O Completing Treatment Prescriptions: No Action No Known Home Meds Discharge Date/Time: 11/24/23 19:44
== END 2023-11-24 19:44 | disposition left against medical advice (07) ==
LOC: HO.ED 19:44
PROVIDERS: Emergency Provider Emergency Medicine; PCP Internal Medicine
DX: R07.9 Chest pain, unspecified (principal); I45.10 Unspecified right bundle-branch block
CPT/HCPCS: 36415; 80053; 84484; 85025; 93005; 99283

== ENCOUNTER → 2023-11-24 14:29 | Outpatient (BNV) | payer OTHER, SELFPAY | PROVIDERS: Emergency Provider Emergency Medicine; PCP Internal Medicine; Visit Provider Internal Medicine | DX: I44.0 Atrioventricular block, first degree (principal); I45.10 Unspecified right bundle-branch block | CPT/HCPCS: 93010 ==

== ENCOUNTER 2023-12-01 10:03 | Outpatient (AMB) | payer OTHER, SELFPAY ==
--- NOTE | 2023-12-01 10:12 | MHC.OFFVIS ---
Intake Vital Signs 12/01/23 10:14 Height 5 ft 5 in Weight 191 lb 12.835 oz BMI 31.9 BP 146/100 H Blood Pressure Location Lt brachial Position Sitting Pulse 94 Intake Visit Reasons: Follow up per PCP/Abnormal EKG Intake Note: follow up Supervisor Delivery Department Required: No Accompanied by: Self / Same As Patient Allergies No Known Allergies [No Known Allergies*] Allergy (Verified 12/01/23 10:15) Medication List - Last Reconciled 12/01/23 by Toni Bragg MD No Known Home Meds HPI HPI Comments History of Present Illness Details aNina is here for consultation regarding chest pain and concern for an abnormal EKG. She was seen in 2020 for somewhat similar reasons. At that time, she underwent noninvasive workup with echocardiogram/stress test. We have not seen her since. She states that she lost her son in 2021 to a car accident. She has been depressed and stressed out after that. Today, she is very tearful and essentially crying in the clinic. Tried to reassure her as much possible. She states that whenever she is stressed out she gets chest pains. Various nature/descriptions. Otherwise, nothing clearly exertional. No known coronary disease or myocardial infarction. [facility] Medical History Grief at loss of child Basal cell carcinoma (BCC) Surgical History History of appendectomy History of endometrial ablation Hx of tonsillectomy Family History Father No problems noted. Mother No problems noted. Son No problems noted. Social History Alcohol intake: former Patient Tobacco Use Status: Former Tobacco user Quit Date: September 2017 Review of Systems Const Denies weakness ENT Denies dizziness Card Denies chest pain, Denies chest pain with activity, Denies syncope, Denies rapid heart rate, Denies pedal edema, Denies edema, Denies leg edema, Denies lightheadedness, Denies dyspnea, Denies dyspnea on exertion and Denies orthopnea Resp Denies cough, Denies dyspnea and Denies dyspnea on exertion GI Denies hematochezia and Denies change in stool character Musc Denies abnormal gait, Denies muscle cramps, Denies muscle weakness, Denies numbness, Denies radiating pain into limb and Denies tingling Neuro Denies abnormal gait, Denies dizziness, Denies syncope, Denies numbness, Denies tingling and Denies weakness Physical Exam Vital Signs: Last Vital Signs Pulse 94 12/01/23 10:14 BP 146/100 H 12/01/23 10:14 BMI result Body Mass Index 31.9 Const General: comfortable and no acute distress Orientation/consciousness: patient oriented x3 HEENT Other: Unremarkable Head: Yes normal to inspection Neck Neck: Yes normal visual inspection Chest Chest palpation & inspection: normal inspection of the chest Resp Auscultation: clear to auscultation bilaterally Cardio Palpation: normal PMI Heart sounds: S1 normal heart sound present, S2 normal heart sound present, no gallops, no murmurs and no rubs GI Palpation (GI): Soft to palpation Back/Spine/Pelvis Other: unremarkable Skin General skin exam: no rashes or lesions noted Neuro General: patient oriented x3 Extrem General: Yes normal to inspection Psych Mental Status: mental status grossly normal Assessment & Plan Assessment & Plan (1) Chest pain: Code(s): R07.9 - Chest pain, unspecified (2) Abnormal stress test: Code(s): R94.39 - Abnormal result of other cardiovascular function study Plan Cardiac studies reviewed. In the most recent EKG from 23 of November, underlying rhythm is sinus with a right bundle-branch block pattern. Borderline [place] prolongation to 210 milliseconds. Some T-wave changes which could all be from right bundle-branch block. This does appear different from the previous EKG 2020. Testing 2020- In the stress test, she was able to exercise for 7 minutes; normal heart rate response but had a hypertensive blood pressure response with a peak blood pressure of 212/104 mm Hg. Nonspecific T-wave changes in the initial EKG that normalized during the test with 2/10 chest tightness. Study was repeated with perfusion imaging and that showed mild apical reversible defect but thought to be artifactual and less likely from ischemia. In the echocardiogram, LVEF was 58%. There is mild left ventricular hypertrophy. Overall, atypical symptoms but somewhat abnormal prior testing with abnormal findings on current EKG. Recommend coronary CTA for further evaluation. She is quite tachycardic mainly from anxiety and hence suggest she takes beta-blockers on the night prior to and morning of the CT scan. Script is being sent. Blood pressure is on the higher side but again she is crying and did not make any changes today. There were couple of other blood pressures recently, one being completely normal at 120/80 mm Hg and another on the higher side. May need meds. To be followed. Reassured her as much. We can see her back once testing is completed. Orders: Orders CA echo transthoracic complete Today I25.10 - Atherosclerotic heart disease of [place] coronary artery without angina pectoris, R07.9 - Chest pain, unspecified Basic Metabolic Panel Today R07.9 - Chest pain, unspecified CT Cardiac Coronary Angio Today I25.10 - Atherosclerotic heart disease of [place] coronary artery without angina pectoris Medications: New metoprolol tartrate Take night before and morning of CT scan. 50 mg PO BID 2 tabs 0RF Coding Level of Care Code Est Pt Level 4 (01666) Diagnoses Chest pain R07.9 Abnormal stress test R94.39
[2023-12-01 10:14] VITALS: BP 146/100; PULSE 94; BMI 31.9
== END 2023-12-01 10:42 | disposition home or self-care (01) ==
PROVIDERS: PCP Internal Medicine; Visit Provider Internal Medicine
DX: R07.9 Chest pain, unspecified (principal); R94.39 Abnormal result of other cardiovascular function study
CPT/HCPCS: 99214

== ENCOUNTER → 2023-12-01 10:03 | Outpatient (BNVA) | payer OTHER, SELFPAY | PROVIDERS: PCP Internal Medicine; Visit Provider Internal Medicine ==

== ENCOUNTER → 2023-12-19 07:54 | Outpatient (REF) | payer OTHER, SELFPAY ==
--- NOTE | 2023-12-19 07:56 | CA_ITS ---
Transthoracic Echocardiogram Patient (Last, First, Middle): Naina Robles M Gender: Female Date of : 1970 Age: 53 Procedure Date: 12/19/2023 Procedure Type: Transthoracic Echocardiogram Location: OP Height: 165.1 cm Weight: 90.72 kg BSA: 1.98 m2 Heart Rate: bpm BP: 150 / 100 mmHg Poultice Machine Operator: TO Referring MD: Toni Bragg MD Symptoms: I25.10 - Atherosclerotic heart disease of [place] coronary artery without... Study Quality: Fair/Contrast Conclusions: - Normal left ventricular size and systolic function. There is mildly increased left ventricular wall thickness. The visually estimated ejection fraction is between 55-60%. - Abnormal diastolic function is noted. Spectral Doppler is indicative of an impaired relaxation filling pattern. Normal left ventricular filling pressures. Reduced GLS -14%. - Normal right ventricular cavity size. There is borderline right ventricular systolic function. - There is mild dilatation of the sinuses of Valsalva measuring 3.91 cm and mild dilatation of the ascending aorta measuring 3.70 cm. Findings Procedure Information Contrast agent, definity, is being given per protocol without apparent complications. Left Ventricle Normal left ventricular size and systolic function. There is mildly increased left ventricular wall thickness. The visually estimated ejection fraction is between 55-60%. There is no evidence of regional wall motion abnormalities. Abnormal diastolic function is noted. Spectral Doppler is indicative of an impaired relaxation filling pattern. Normal left ventricular filling pressures. Reduced GLS -14%. Right Ventricle Normal right ventricular cavity size. There is borderline right ventricular systolic function. Atria The left atrium is normal in size. The right atrium is normal in size. Aortic Valve Normal aortic valve structure and function. There is no aortic valve stenosis. There is trace (trivial) aortic valve regurgitation. Pulmonic Valve Normal pulmonic valve structure and function. There is trace pulmonic valve regurgitation. Tricuspid Valve Normal tricuspid valve structure. There is no tricuspid valve regurgitation. Great Vessels There is mild dilatation of the sinuses of Valsalva measuring 3.91 cm and mild dilatation of the ascending aorta measuring 3.70 cm. Venous The inferior vena cava is normal in size and collapses greater than 50% with inspiration. Pericardium/Pleural There is no evidence of pericardial effusion. Prior Study Comparison Changes noted compared to prior study dated: 06/07/2021. Abnormal diastolic function with normal filling pressures. RV function is borderline reduced. Measurements 2D Linear Measurements IVSd: 1.17 0.6-0.9/0.6-1.0 cm LVIDd: 4.77 3.9-5.3/4.2-5.9 cm LVIDd Index: 2.41 2.4-3.2/2.2-3.1 cm/m2 LVIDs: 3.51 2.0-3.6 cm LVPWd: 0.71 0.7-1.1 cm LA Diam: 3.30 2.7-3.8/3.0-4.0 cm LAIDs Index: 1.67 1.5-2.3 cm/m2 LV Mass: 192.97 67-162/88-224 g LV Mass Index: 97.46 43-95/49-115 g/m2 LVOT Diam: 2.30 3.0+(-)1.3 cm 2D Systolic Function EF 4C: 48.40 >55% EF 2C: 51.20 >55% EF BiP: 50.60 >55% Mitral Valve MV Pk E: 0.38 MV PK A: 0.56 MV Decel Time: 175.00 E/A: 0.70 E'Lateral: 6.64 E'Medial: 4.24 E/E' Med: 8.90 E/E' Lat: 5.70 PHT: 52.00 MVA PHT: 4.23 Decel [place]: 2.09 Aortic Valve AoV Pk Reid: 1.15 AoV Mn Reid: 0.88 AoV VTI: 0.22 AoV Pk Grad: 5.00 Aov Mn Grad: 3.00 DORITA Cont.VTI: 3.62 LVOT LVOT Pk Reid: 0.97 LVOT Mn Reid: 0.68 LVOT VTI: 0.19 LVOT Pk Grad: 4.00 LVOT Mn Grad: 2.00 LVOT Diam: 2.30 LVOT Area: 4.15 Diastolic Function MV Pk E: 0.38 MV Pk A: 0.56 E/A: 0.70 E'Medial: 4.24 E/E' Med: 8.90 E' Laterial: 6.64 E/E' Lat: 5.70 Right Ventricle TAPSE (mm): 14.30 TVS' Reid: 8.38 Tricuspid Valve RA Press: 3.00 Great Vessels Aorta Sinus of Valsalva: 3.91 2.0-3.5 cm Ao Asc: 3.70 2.1-3.4 cm Ao Arch: 2.60 Updated in Other Vendor System with Status of Final Adebayo Mehta MD electronically signed on 12/21/2023 11:17:07 AM with status of Final
== END ==
LOC: HO.CARD 07:54
PROVIDERS: PCP Internal Medicine; Visit Provider Internal Medicine
DX: R07.9 Chest pain, unspecified (principal); I25.10 Atherosclerotic heart disease of native coronary artery without angina pectoris
CPT/HCPCS: 93306; 93356; Q9957

== ENCOUNTER → 2023-12-19 07:56 | Outpatient (BNV) | payer OTHER, SELFPAY | PROVIDERS: PCP Internal Medicine; Visit Provider Internal Medicine Cardiovascular Disease | DX: I25.10 Atherosclerotic heart disease of native coronary artery without angina pectoris (principal) | CPT/HCPCS: 93306; 93356 ==

== ENCOUNTER 2024-01-12 08:33 | Outpatient (AMB) | payer OTHER, SELFPAY ==
[2024-01-12 08:39] VITALS: BP 144/100; PULSE 94; BMI 32.9
--- NOTE | 2024-01-12 08:39 | A.OFFVIS_ITS ---
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 Her symptoms improved and she was followed clinically. Recently she was referred back to Cardiology for evaluation of chest discomfort. Her EKG does show a right bundle branch block. An echocardiogram and CTA of the coronary arteries was ordered. Today she reports that she was not able to get the CTA of the coronaries done at [facility] as her insurance declined it. She currently has it scheduled at [facility] for 04/06/2024. She was able to complete the echocardiogram here at [facility]. She tells me she does get random tingling in her left chest region when she is upset. She also will get a tightness in that region at times when upset or anxious. She does not have symptoms brought on by physical activity. She tells me she walks approximately 1 mile most days which she tolerates well. Her job itself is sedentary. She is still grieving over the loss of her son in 2021. She denies having shortness of breath, palpitations, lightheadedness, presyncope, syncope, falls. No PND, orthopnea or edema. is present. She expresses much concern that her heart has an artery blockage. [facility] Medical History Grief at loss of child Basal cell carcinoma (BCC) Surgical History History of appendectomy History of endometrial ablation Hx of tonsillectomy Family History Father No problems noted. Mother No problems noted. Son No problems noted. Social History Alcohol intake: former Patient Tobacco Use Status: Former Tobacco user Quit Date: September 2017 Review of Systems Const All systems reviewed & are unremarkable except as noted in HPI and below ENT Denies dizziness Card Details: tingling left chest, heaviness with stress Denies chest pain, Denies chest pain at rest, Denies chest pain with activity, Denies rapid heart rate, Denies pedal edema, Denies edema, Denies leg edema, Denies lightheadedness, Denies palpitations, Denies dyspnea, Denies dyspnea on exertion and Denies orthopnea Resp Denies cough, Denies dyspnea and Denies dyspnea on exertion GI Denies hematochezia and Denies change in stool character Musc Denies abnormal gait, Denies limited range of motion, Denies muscle cramps, Denies muscle weakness, Denies numbness, Denies radiating pain into limb, Denies stiffness and Denies tingling Neuro Denies abnormal gait, Denies dizziness, Denies numbness and Denies tingling Endo Denies palpitations Physical Exam Vital Signs: Last Vital Signs Pulse 94 01/12/24 08:39 BP 144/100 H 01/12/24 08:39 BMI result Body Mass Index 32.9 Const General: cooperative, healthy appearing, comfortable and no acute distress Orientation/consciousness: patient oriented x3 Neck Neck: Yes normal visual inspection and Yes no JVD Resp Effort & Inspection: normal respiratory effort Auscultation: clear to auscultation bilaterally, no crackles, no rales, no rhonchi and no wheezes Cardio Jugular venous distension: no JVD Rate: regular rate Rhythm: regular rhythm Heart sounds: S1 normal heart sound present, S2 normal heart sound present, no murmurs and no rubs Neuro General: patient oriented x3 Extrem General: Yes normal to inspection, No no pedal edema and No calf tenderness Psych Appearance: grossly normal Mental Status: mental status grossly normal Speech and movement: Normal speech and movement present Assessment & Plan Assessment & Plan (1) Precordial chest pain: Code(s): R07.2 - Precordial pain Category: Medical Plan: Reports of tightness in her left chest region that occurs at times when she is upset, other times she will notice tingling in that region. She has no symptoms brought on by exertional activities. She is mostly sedentary at work but does walk her dog approximately 1 mi daily. EKG done 11/24/2023 shows sinus rhythm with sinus arrhythmia, first-degree AV block, right bundle branch block which is new from last EKG, T-wave abnormality, rate 81. She has a nuclear stress test was done 2020 which showed mild apical reversible defect thought to be artifact and less likely ischemia. Echocardiogram at that time showed EF 58%, mild LVH. An echocardiogram was repeated on 12/19/2023 showing EF 55-60%, abnormal diastolic function, ascending aorta 3.7 cm. A CTA of the coronary arteries has been ordered however not completed as of yet. She has an appointment on 04/06/2024. At this time her symptoms are not exertional. She will get symptoms of chest tightness and tingling when she is upset. Spent time reviewing signs and symptoms of angina. She is to call this office if she has any increase or exertional symptoms. Emergency care if needed. She has not on any medications at this time. Will hold off on the addition of meds as her symptoms do sound atypical. Cardiology follow-up once CTA results are available. (2) Abnormal EKG: Code(s): R94.31 - Abnormal electrocardiogram [ECG] [EKG] Category: Medical Plan: EKG shows sinus rhythm with first-degree AV block which is not new, right bundle branch block which is new compared to prior EKGs. Her echocardiogram shows normal EF and no regional wall motion abnormality. CTA of the coronaries is pending. Finding of right bundle branch block, right-sided electrical delay reviewed with her using charts in the room. She states better understanding of this finding. Will need to follow with periodic EKGs. (3) Abnormal stress test: Code(s): R94.39 - Abnormal result of other cardiovascular function study Category: Medical Plan: Two thousand twenty-one, nuclear stress test mildly abnormal. Plan Time spent on chart review, documentation, interview and assessment Coding Level of Care Code Est Pt Level 4 (21906) Diagnoses Precordial chest pain R07.2 Abnormal EKG R94.31 Abnormal stress test R94.39 Time Spent (min) 30
== END 2024-01-12 09:26 | disposition home or self-care (01) ==
PROVIDERS: PCP Internal Medicine; Visit Provider Nurse Practitioner Family
DX: R07.2 Precordial pain (principal); R94.31 Abnormal electrocardiogram [ECG] [EKG]; R94.39 Abnormal result of other cardiovascular function study
CPT/HCPCS: 99214

== ENCOUNTER → 2024-01-12 08:33 | Outpatient (BNVA) | payer OTHER, SELFPAY | PROVIDERS: PCP Internal Medicine; Visit Provider Nurse Practitioner Family ==

== ENCOUNTER 2024-03-15 07:42 | Outpatient (REF) | payer OTHER, SELFPAY ==
--- NOTE | ~2024-03-15 | MM_ITS ---
EXAMINATION: MM SCREENING DIGITAL BREAST TOMOSYNTHESIS, BILATERAL CLINICAL INFORMATION: Screening. Asymptomatic. COMPARISON: Mammography: This study is compared with prior exams dating back to TECHNIQUE: Digital breast tomosynthesis is performed in both the craniocaudal and mediolateral oblique views along with computer-aided detection (CAD). Synthesized 2D images are generated from the tomosynthesis. FINDINGS: The breasts are almost entirely fatty (ACR BI-RADS breast composition Category a). There are no significant masses, abnormal calcifications, or other abnormalities. MM/MM tomosynthesis screening BI IMPRESSION: No mammographic evidence of malignancy. ASSESSMENT: BI-RADS BI-RADS 1 - Negative RECOMMENDATION: Routine annual mammography screening. 1 year F/U This examination should not preclude the clinical evaluation of a suspicious palpable abnormality. This patient's information was entered into a reminder system with a target due date for their next mammogram.
== END 2024-03-15 07:43 | disposition home or self-care (01) ==
LOC: HO.MAMMO 07:42
PROVIDERS: PCP Internal Medicine; Visit Provider Internal Medicine
DX: Z12.31 Encounter for screening mammogram for malignant neoplasm of breast (principal)
CPT/HCPCS: 77063; 77067

== ENCOUNTER → 2024-03-15 08:00 | Outpatient (BNV) | payer OTHER, SELFPAY | PROVIDERS: PCP Internal Medicine; Visit Provider Radiology Diagnostic Radiology | DX: Z12.31 Encounter for screening mammogram for malignant neoplasm of breast (principal) | CPT/HCPCS: 77063; 77067 ==

== ENCOUNTER 2024-04-27 08:33 | Outpatient (AMB) | payer OTHER, SELFPAY ==
[2024-04-27 08:37] VITALS: BP 153/90; PULSE 76; BMI 31.0
--- NOTE | 2024-04-27 08:37 | A.OFFVIS_ITS ---
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 Her symptoms improved and she was followed clinically. Recently she was referred back to Cardiology for evaluation of chest discomfort. Her EKG does show a right bundle branch block. An CTA of the coronary arteries was ordered and she now presents for follow-up. Today she reports that she will still get random tingling in her left chest region when she is upset. She also will get a tightness in that region at times when upset or anxious. She expresses very high stress levels with her job, her mother being ill, the ongoing grief of the loss of her child, caring for her other young adult children. She is actually tearful at this visit. She does not have chest symptoms brought on by physical activity. She stillwalks approximately 1 mile most days with her dog. She denies having shortness of breath, palpitations, lightheadedness, presyncope, syncope, falls. No PND, orthopnea or edema. She does not want to take any medications. [facility] Medical History Grief at loss of child Basal cell carcinoma (BCC) Surgical History History of appendectomy History of endometrial ablation Hx of tonsillectomy Family History Father No problems noted. Mother No problems noted. Son No problems noted. Social History Alcohol intake: former Patient Tobacco Use Status: Former Tobacco user Review of Systems Const Details: high stress levels All systems reviewed & are unremarkable except as noted in HPI and below ENT Denies dizziness Card Reports chest pain (only when very stressed), Denies chest pain at rest, Denies chest pain with activity, Denies rapid heart rate, Denies pedal edema, Denies edema, Denies leg edema, Denies lightheadedness, Denies palpitations, Denies dyspnea, Denies dyspnea on exertion and Denies orthopnea Resp Denies cough, Denies dyspnea and Denies dyspnea on exertion GI Denies hematochezia and Denies change in stool character Musc Denies abnormal gait, Denies limited range of motion, Denies muscle cramps, Denies muscle weakness, Denies numbness, Denies radiating pain into limb, Denies stiffness and Denies tingling Neuro Denies abnormal gait, Denies dizziness, Denies numbness and Denies tingling Endo Denies palpitations Physical Exam Vital Signs: Last Vital Signs Pulse 76 04/27/24 08:37 BP 153/90 H 04/27/24 08:37 BMI result Body Mass Index 31.0 Const General: cooperative, healthy appearing, comfortable and no acute distress Orientation/consciousness: patient oriented x3 Neck Neck: Yes normal visual inspection and Yes no JVD Resp Effort & Inspection: normal respiratory effort Auscultation: clear to auscultation bilaterally, no rales, no rhonchi and no wheezes Cardio Jugular venous distension: no JVD Rate: regular rate Rhythm: regular rhythm Heart sounds: S1 normal heart sound present, S2 normal heart sound present, no murmurs and no rubs Neuro General: patient oriented x3 Extrem General: Yes normal to inspection and No no pedal edema Psych Appearance: grossly normal Mental Status: mental status grossly normal Speech and movement: Normal speech and movement present Assessment & Plan Assessment & Plan (1) Precordial chest pain: Code(s): R07.2 - Precordial pain Category: Medical Plan: Reports of tightness in her left chest region that occurs at times when she is upset, other times she will notice tingling in that region. She has no symptoms brought on by exertional activities. She is mostly sedentary at work but does walk her dog approximately 1 mile daily. EKG done 11/24/2023 shows sinus rhythm with sinus arrhythmia, first-degree AV block, right bundle branch block which is new from last EKG, T-wave abnormality, rate 81. She has a nuclear stress test was done 2020 which showed mild apical reversible defect thought to be artifact and less likely ischemia. Echocardiogram at that time showed EF 58%, mild LVH. An echocardiogram was repeated on 12/19/2023 showing EF 55-60%, abnormal diastolic function, ascending aorta 3.7 cm. A CTA of the coronary arteries was done on 03/31/2024 showing no hemodynamically significant coronary artery disease, no visible plaque. Copy of report given to her and incidental findings were highlighted. Her blood pressure is elevated today and she is under extreme stress. Her symptoms may be related to stress and hypertension. Discuss this with her. Offered ideas for stress reduction activities. She is interested in pursuing another job. She will continue to follow with her PCP and have blood pressure checked periodically. She declines starting on antihypertensive agents at this time. She wants to make changes to her lifestyle 1st. Signs and symptoms of angina were reviewed with her. Since no acute cardiac findings identified will plan for cardiology follow-up only as needed. (2) Abnormal EKG: Code(s): R94.31 - Abnormal electrocardiogram [ECG] [EKG] Category: Medical Plan: EKG shows sinus rhythm with first-degree AV block which is not new, right bundle branch block which is new compared to prior EKGs. Her echocardiogram shows normal EF and no regional wall motion abnormality. CTA of the coronaries with no significant coronary artery disease, no visible plaque. Finding of right bundle branch block, right-sided electrical delay again reviewed with her using charts in the room. Can be followed with periodic EKGs. (3) Abnormal stress test: Code(s): R94.39 - Abnormal result of other cardiovascular function study Category: Medical Plan: Two thousand twenty-one, nuclear stress test mildly abnormal. (4) Stress at work: Code(s): Z56.6 - Other physical and mental strain related to work Category: Medical Plan: High stress levels mostly related to stress at work. Also related to family health, grief, issues. Spent time with her going over stress reduction activities. Plan Time spent on chart review, documentation, interview and assessment Coding Level of Care Code Est Pt Level 3 (04230) Diagnoses Precordial chest pain R07.2 Abnormal EKG R94.31 Abnormal stress test R94.39 Stress at work Z56.6 Time Spent (min) 24
== END 2024-04-27 09:17 | disposition home or self-care (01) ==
PROVIDERS: PCP Internal Medicine; Visit Provider Nurse Practitioner Family
DX: R07.2 Precordial pain (principal); R94.31 Abnormal electrocardiogram [ECG] [EKG]; R94.39 Abnormal result of other cardiovascular function study; Z56.6 Other physical and mental strain related to work
CPT/HCPCS: 99213

== ENCOUNTER → 2024-04-27 08:33 | Outpatient (BNVA) | payer OTHER, SELFPAY | PROVIDERS: PCP Internal Medicine; Visit Provider Nurse Practitioner Family ==

== ENCOUNTER 2024-11-04 07:45 | Outpatient (AMB) | payer OTHER, SELFPAY ==
--- NOTE | 2024-11-04 07:49 | MHC.OFFVIS ---
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 Currently sexually active. Denies any vaginal dryness or irritation. STI testing offered; she declines. Attempting to eat a healthy diet with calcium and vitamin D and stays active with exercise-limited due to caretaking her mom. Last pap smear; 2022. Last mammogram; 2023. ColoGard is not UTD. Denies any family history of breast, ovarian or colon cancer. [facility] Medical History Grief at loss of child Basal cell carcinoma (BCC) Surgical History History of appendectomy History of endometrial ablation Hx of tonsillectomy Family History Father No problems noted. Mother No problems noted. Son No problems noted. Social History Alcohol intake: former Patient Tobacco Use Status: Former Tobacco user Female Reproductive History Menstrual Total pregnancies: 5 Full term: 4 Number of Living Children: 3 Date of last pap smear: 11/20/22 (neg pap and hpv) Date of Mammogram: 03/15/24 (Birad 1) Review of Systems Const All systems reviewed & are unremarkable except as noted in HPI and below Reports as per HPI Eyes Reports no additional complaints ENT Reports no additional complaints Card Reports no additional complaints Resp Reports no additional complaints GI Reports as per HPI and Reports no additional complaints Reports as per HPI Musc Reports no additional complaints Skin/Breast Reports as per HPI Neuro Reports no additional complaints Psych Reports no additional complaints Endo Reports no additional complaints Abad/Lymph Reports no additional complaints Aller/Immun Reports no additional complaints Physical Exam Vital Signs: Last Vital Signs BP 132/98 H 11/04/24 07:50 BMI result Body Mass Index 30.3 Const General: cooperative, healthy appearing, no acute distress, well developed and alert Orientation/consciousness: patient oriented x3 HEENT Head: Yes normal to inspection Eyes General: appearance normal, both eyes and all related structures Neck Neck: Yes normal visual inspection Thyroid: Thyroid normal Chest Chest palpation & inspection: normal inspection of the chest and other (no puckering, dimpling, peau de orange, retraction, discharge, masses) Breast/axilla inspection: normal inspection of the breasts Breast/axilla palpation: normal palpation of the breasts Resp Effort & Inspection: normal respiratory effort GI Inspection: Yes normal to inspection Palpation (GI): Soft to palpation Rectal Exam - Female: deferred General: Yes bladder normal to palpation External Female Exam: normal external appearance and normal appearance of the urethra Speculum Exam - Vagina: normal appearance of the vagina, normal palpation and normal vaginal discharge Speculum Exam - Cervix: normal appearance of the cervix and normal palpation Bimanual exam- vagina & uterus: normal bimanual exam, normal palpation, uterine size normal, bladder normal to palpation, normal palpation and non-tender Bimanual Exam- Adnexa, other: no masses Skin General skin exam: no rashes or lesions noted Rashes: no rashes Neuro General: patient oriented x3 Cognition (Neuro): normal cognition Extrem General: Yes normal to inspection Psych Attitude: cooperative Thought process: Normal thought process present Assessment & Plan Assessment & Plan (1) Encounter for well woman exam with routine gynecological exam: Code(s): Z01.419 - Encounter for gynecological examination (general) (routine) without abnormal findings Category: Medical Plan Discussed: Current recommendations for pap smears per ASCCP guidelines. Breast awareness, periodic self breast exams and yearly mammogram. Maintain a healthy lifestyle, well balanced diet including Calcium 1,200 mg and Vitamin D 600 IU daily, and routine exercise. Contact the office with any postmenopausal bleeding. Patient verbalizes understanding and agrees to the plan of care. She was given opportunity to ask questions and all questions were answered to the best of my ability. 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 This note is constructed using voice recognition software. While every effort has been made to ensure accuracy, stitch separator errors may have been included. Coding Level of Care Code Est Pt Prev Care 40-64y(44813) Diagnoses Encounter for well woman exam with routine gynecological exam Z01.419
[2024-11-04 07:50] VITALS: BP 132/98; BMI 30.3
== END 2024-11-04 08:26 | disposition home or self-care (01) ==
LOC: HO.HWS 07:45
PROVIDERS: PCP Internal Medicine; Visit Provider Advanced Practice Midwife
DX: Z01.419 Encounter for gynecological examination (general) (routine) without abnormal findings (principal)
CPT/HCPCS: 99396; 99459

== ENCOUNTER → 2024-11-04 07:45 | Outpatient (BNVA) | payer OTHER, SELFPAY | PROVIDERS: PCP Internal Medicine; Visit Provider Advanced Practice Midwife ==

== ENCOUNTER 2025-03-21 07:49 | Outpatient (REF) | payer OTHER, SELFPAY | END 2025-03-21 07:50 | disposition home or self-care (01) | LOC: HO.MAMMO 07:49 | PROVIDERS: PCP Internal Medicine; Visit Provider Internal Medicine | DX: Z12.31 Encounter for screening mammogram for malignant neoplasm of breast (principal) | CPT/HCPCS: 77063; 77067 ==

== ENCOUNTER → 2025-03-21 08:00 | Outpatient (BNV) | payer OTHER, SELFPAY | PROVIDERS: PCP Internal Medicine; Visit Provider Internal Medicine | DX: Z12.31 Encounter for screening mammogram for malignant neoplasm of breast (principal) | CPT/HCPCS: 77063; 77067 ==

== ENCOUNTER 2025-04-08 09:36 | Outpatient (AMB) | payer OTHER, SELFPAY ==
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
[2025-04-08 09:52] VITALS: BP 154/110; PULSE 73; RESP 16; TEMP 36.3; O2SAT 98
== END 2025-04-08 10:35 | disposition home or self-care (01) ==
LOC: HO.HMCHD 09:37
PROVIDERS: PCP Internal Medicine; Visit Provider Internal Medicine
DX: Z00.00 Encounter for general adult medical examination without abnormal findings (principal); I10 Essential (primary) hypertension; Z56.6 Other physical and mental strain related to work

== ENCOUNTER 2025-04-09 07:31 | Outpatient (REF) | payer OTHER, SELFPAY ==
[2025-04-09 08:01] LABS: MANUAL DIFF FLAG NO
[2025-04-09 08:34] LABS: Hematocrit 45.0 % (37.0-47.0); Hemoglobin 15.5 g/dl (12.0-16.0); Imm Gran Abs Auto 0.04 X10*3/uL (0.00-0.03); Imm Gran Pct Auto 0.7 % (0.0-0.4); Lymphocytes Absolute Auto 1.7 X10*3/uL (1.2-4.9); Mean Corpuscular HGB Conc 34.4 g/dl (31.0-35.0); Mean Corpuscular Hemoglobin 29.1 pg (27.0-33.0); Mean Corpuscular Volume 84.6 fL (80.0-98.0); NRBC Abs Auto 0.000 X10*3/uL (0.0-0.012); NRBC Pct Auto 0.0 /100WBC (0.0-0.2); Platelet Count 200 X10*3/uL (160-400); Red Blood Count 5.32 X10*6/uL (4.20-5.50); White Blood Count 5.7 X10*3/uL (4.8-10.8)
[2025-04-09 09:13] LABS: Alanine Aminotransferase 26 U/L (0-31); Albumin Level 4.8 g/dL (3.5-5.0); Alkaline Phosphatase 92 U/L (39-117); Anion Gap 14 (12-20); Aspartate Amino Transferase 39 U/L (5-31); Blood Urea Nitrogen 15 mg/dL (9-16); Calcium 9.7 mg/dL (8.4-10.2); Carbon Dioxide 29 mmol/L (22-29); Chloride 104 mmol/L (96-108); Cholesterol 189 mg/dL (<200); Estimated Glomerular Filt Rate > 60; HDL Cholesterol 50 mg/dL (>40); Potassium 4.5 mmol/L (3.3-5.1); Sodium 142 mmol/L (135-145); Total Protein 7.5 g/dL (6.5-8.0); Triglycerides 149 mg/dL (<150)
[2025-04-09 10:04] LABS: Hemoglobin A1C 145.3785 umol/L; Total Hemoglobin (HGBA1C) 4053.8870 umol/L
== END 2025-04-09 07:32 | disposition home or self-care (01) ==
LOC: HO.LAB 07:31
PROVIDERS: PCP Internal Medicine; Visit Provider Internal Medicine
DX: Z00.00 Encounter for general adult medical examination without abnormal findings (principal); Z13.220 Encounter for screening for lipoid disorders; Z13.228 Encounter for screening for other metabolic disorders; Z13.0 Encounter for screening for diseases of the blood and blood-forming organs and certain disorders involving the immune mechanism
CPT/HCPCS: 36415; 80053; 80061; 83036; 84443; 85025